=== PATIENT | female | born 1995 | race Two or more races ===

== ENCOUNTER 2018-08-20 14:13 | Emergency (ER) | payer OTHER ==
[~2018-08-20] VITALS: Ht 165.1 cm; Wt 72.0 kg
[2018-08-20 15:32] LABS: BASOPHILS # (AUTO) 0.03 x10^3/uL (0-0.1); BASOPHILS % (AUTO) 0 % (0-1); EOSINOPHILS % (AUTO) 0 % (1-7); LYMPHOCYTES # (AUTO) 1.84 x10^3/uL (1-3.4); LYMPHOCYTES % (AUTO) 22 % (22-44); MD NO; MEAN CORPUSCULAR HEMOGLOBIN 30.6 pg (27.0-34.8); MEAN CORPUSCULAR HGB CONC 34.4 g/dL (32.4-35.8); MEAN CORPUSCULAR VOLUME 88.9 fL (80-100); MEAN PLATELET VOLUME 8.6 fL (7.4-10.4); MONOCYTES # (AUTO) 0.31 x10^3/uL (0.2-0.8); MONOCYTES % (AUTO) 4 % (2-9); NEUTROPHILS # (AUTO) 6.07 x10^3/uL (1.8-6.8); NEUTROPHILS % (AUTO) 74 % (42-75); PLATELET COUNT 241 x10^3/uL (130-400)
[2018-08-20 15:39] LABS: ANION GAP 8 mmol/L (5-15); CALCIUM 9.5 mg/dL (8.5-10.1); CHLORIDE 107 mmol/L (98-107)
[2018-08-20 15:42] LABS: CREATININE 0.65 mg/dL (0.55-1.02)
--- NOTE | 2018-08-20 16:33 | NUR ---
ASSUMED CARE OF PT AT THIS TIME. PT C/O PERSISTENT MORNING SICKNESS THAT SHE WAS SEEN FOR LAST WEEK AT [facility] AND PRESCRIBED DICLEGIS TO NO AFFECT. PT ALSO C/O LOWER ABD PAIN RADIATING TO THE BACK.
[2018-08-20] MEDS ORDERED: DOXY1TAB3 PO (16:38)
[2018-08-20 17:21] LABS: MICROSCOPIC NOT IND
[2018-08-20 17:29] LABS: CULTURE INDICATED? NO
[2018-08-20 18:04] VITALS: BP 118/55
[2018-08-20] MEDS ORDERED: ONDANSETRON ODT 4 MG PO ONE (19:00)
== END 2018-08-20 19:12 | disposition home or self-care (01) ==
LOC: ED 19:06 → EDBD 19:06 → ED 19:12
DX: O21.9 Vomiting of pregnancy, unspecified (principal); Z3A.08 8 weeks gestation of pregnancy
CPT/HCPCS: 36415; 76801; 80048; 81003; 84702; 85025; 99284